=== PATIENT | male | born 1995 | race Caucasian/White ===

== ENCOUNTER 2018-02-09 20:00 | Emergency (ER) | payer BC, OTHER ==
[2018-02-09 20:19] VITALS: RESP 15; TEMP 98.5; O2SAT 100
[2018-02-09] MEDS ORDERED: Tobramycin 0.3% OPHT SOLN OU ONE (21:14)
--- NOTE | 2018-02-09 21:30 | ED PDOC ---
HPI: Eye Injury/Pain Time Seen by Provider: 02/09/18 20:33 Chief Complaint (Nursing): Eye Problem Chief Complaint (Provider): Eye Problem History Per: Patient History/Exam Limitations: no limitations Onset/Duration Of Symptoms: Days (x1) Current Symptoms Are (Timing): Still Present Additional Complaint(s): 22 year old male arrives to ED for evaluation of redness and burning pain to bilateral eyes (left > right) status post exposure to electrical spark earlier today. States that he was working on an electrical panel, which sparked and he was exposed to a bright flash to his eyes, he was unable to see for a few seconds from the bright flash, however he regained his vision afterwards. Patient was evaluated at another ED immediately after onset, cleared for discharge and felt well at the time. However, at home, he began experiencing the following current symptoms. Otherwise: (-) excessive tearing, (-) d/c, (-) headache, (-) decreased vision, or (-) FB sensation or injury to eyes. PMD: Dr. Joe Blackwell Past Medical History Reviewed: Historical Data, Nursing Documentation, Vital Signs Vital Signs: Last Vital Signs Temp 98.5 F 02/09/18 20:15 Pulse 68 02/09/18 20:15 Resp 15 02/09/18 20:15 BP Pulse Ox 100 02/09/18 20:15 - Medical History PMH: No Chronic Diseases - Surgical History Surgical History: No Surg Hx - Family History Family History: States: Unknown Family Hx - Home Medications Home Medications: Ambulatory Orders Medication Instructions Recorded Tobramycin 0.3% [Tobrex 0.3% Ophth 2 drop OU QID #1 bottle 02/09/18 Soln] - Allergies Allergies/Adverse Reactions: Allergies Allergy/AdvReac Type Severity Reaction Status Date / Time No Known Allergies Allergy Verified 02/09/18 20:19 Review of Systems ROS Statement: Except As Marked, All Systems Reviewed And Found Negative Eyes: Positive for: Pain (left > right burning with redness). Negative for: Vision Change, Other (tearing) Neurological: Negative for: Headache Physical Exam - Reviewed Nursing Documentation Reviewed: Yes Vital Signs Reviewed: Yes - Physical Exam Comments: GENERAL APPEARANCE: Patient is awake, alert, oriented x 3, in no acute distress. SKIN: Warm, dry; (-) cyanosis; (-) rash. EYES: Visual acuity : R eye 20/20 L eye 20/20. PERRLA, EOMI. (+) mild conjunctival injection to L eye, (-) d/c, (-) abrasions, (-) ulcers. Eye lids normal in appearance. ENMT: (-) sinus tenderness; mucous membranes are moist. NEURO AND PSYCH: Mental status as above. lunchroom worker: Pupils equal and reactive; EOMI ; (-) facial asymmetry; tongue and uvula midline. Strength and DTRs symmetric. - ECG O2 Sat by Pulse Oximetry: 100 (RA) Pulse Ox Interpretation: Normal Medical Decision Making Medical Decision Making: Time: 2113 Initial Plan: * Tobrex 0.3% ophth soln Time: 2129 --Advised to follow up with ophthalmology referral in 1-2 days without fail. Advised to take medication as prescribed. Advised to rest his eyes. Return to the emergency room at any time for any new or worsening symptoms. Patient states he fully agrees with and understands discharge instructions. States that he agrees with the plan and disposition. Verbalized and repeated discharge instructions and plan. I have given the patient opportunity to ask any additional questions. Scribe Attestation: Documented by Daniella Mcghee, acting as a scribe for Talita Ramon PA-C. Provider Scribe Attestation: All medical record entries made by the Scribe were at my direction and personally dictated by me. I have reviewed the chart and agree that the record accurately reflects my personal performance of the history, physical exam, medical decision making, and the department course for this patient. I have also personally directed, reviewed, and agree with the discharge instructions and disposition. Disposition - Clinical Impression Clinical Impression: Photokeratitis of both eyes - Patient ED Disposition Is Patient to be Admitted: No Counseled Patient/Family Regarding: Diagnosis, Need For Followup, Rx Given - Disposition Referrals: Eldon Flores MD [Staff Provider] - Disposition: Routine/Home Disposition Time: 21:16 Condition: STABLE Additional Instructions: Thank you for letting us take care of you today. You were treated for photokeratitis. The emergency medical care you received today was directed at your acute symptoms. If you were prescribed any medication, please fill it and take as directed. Rest your eyes. It may take several days for your symptoms to resolve. Return to the Emergency Department if your symptoms worsen, do not improve, or if you have any other problems. Please call one of the physicians/clinics you have been referred to that are listed on the Patient Visit Information form that is included in your discharge packet. Bring any paperwork you were given at discharge with you along with any medications you are taking to your follow up visit. Our treatment cannot replace ongoing medical care by a primary care provider (PCP) outside of the emergency department. Thank you for allowing the [facility] team to be part of your care today. Prescriptions: Tobramycin 0.3% [Tobrex 0.3% Ophth Soln] 2 drop OU QID #1 bottle Instructions: Photokeratitis ([facility]) Forms: [employer] ([place]), [facility] ED School/Work Excuse - PA / [employer]BER / Resident Statement / has reviewed & agrees with the documentation as recorded.
[2018-02-09 22:40] VITALS: BP 122/74; PULSE 74
== END 2018-02-09 22:40 | disposition home or self-care (01) ==
LOC: H.ER 20:00
DX: H16.133 Photokeratitis, bilateral (principal)